=== PATIENT | female | born 1950 | race Caucasian/White ===

== ENCOUNTER → 2016-12-30 | Day surgery (SDC) | payer OTHER, MEDICARE ==
[2016-12-16 09:51] VITALS: Ht 168.9 cm; Wt 138.6 kg
[~2016-12-30] VITALS: Ht 168.9 cm; Wt 138.6 kg
[~2016-12-30] MED LIST: ACET-1256 PO; BUPIVACAINE 0.25% 2.5MG/ML PF 10 ML VIAL INFIL ONE; CHOL20007 PO; CMD4 PO; FERR1TAB23 PO; HYDR-5688 PO; HYDR25TA4 PO; IOPAMIDOL INJ 61% 15 ML VIAL ONE; LIDOCAINE HCL 1% MPF 5 ML VIAL ONE; LISI-725 PO; MAGN250T3 PO; NAPR-998 PO; OMEG10007 PO; POTASSIUM PO; PRLSR20 PO; RST/30 PO; SODIUM CHLORIDE 0.9% INJ 10 ML VIAL ONE
[2016-12-30 12:59] LABS: INR 1.1 (0.9-1.1); PROTHROMBIN TIME (PATIENT) 11.4 SECONDS (9.0-12.0)
--- NOTE | 2016-12-30 13:54 | History & Physical Bridge - [place] ---
H&P Re-Evaluation Bridge Note: I have examined the patient, reviewed the History & Physical and in the interval since the performance of the History & Physical I have noted the following changes of clinical significance: No changes noted
[2016-12-30 14:20] VITALS: TEMP 36.6
--- NOTE | 2016-12-30 14:28 | Discharge Instructions ---
Discharge Instructions Date of Service Dec 30, 2016. Visit Reason for Visit: Lumbar Radiculopathy Discharge Discharge Diagnosis / Problem: right leg pain Discharge Goals Goal(s): Decrease discomfort, Improve function Activity Recommendations Activity Limitations: resume your previous activity Anesthesia . Post Anesthesia Instructions: If you have had General Anesthesia or IV Sedation: * Do not drive today. * Resume driving when surgeon permits. * Do not make important decisions or sign legal documents today. * Call surgeon for: 1. Temperature elevations greater than 101 degrees F. 2. Uncontrollable pain. 3. Excessive bleeding. 4. Persistent nausea and vomiting. 5. Medication intolerance (nausea, vomiting or rash). * For nausea and vomiting use only clear liquids such as: tea, soda, bouillon until nausea subsides, then gradually increase diet as tolerated. * If you have any concerns or questions, call your surgeon's office. If physician is unavailable and it is an emergency, call 911 or go to the nearest emergency room. . Diet Recommendations Recommended Home Diet: resume previous diet Procedures Procedures Performed: RIGHT L2-3 TRANSFORAMINAL EPIDURAL STEROID INJECTION Pending Studies Studies pending at discharge: no Medical Emergencies . Who to Call and When: Medical Emergencies: If at any time you feel your situation is an emergency, please call 911 immediately. . Non-Emergent Contact Non-Emergency issues call your: Specialist . . "Provider Documentation" section prepared by Alvaro Barker.
[2016-12-30 14:33] VITALS: BP 119/75; PULSE 76; O2SAT 99
--- NOTE | 2016-12-30 14:54 | OPERATIVE REPORT ---
DATE OF OPERATION: 12/30/2016 PREOPERATIVE DIAGNOSES: Right L3 radiculopathy, history of multilevel decompression and L2-L3 disc herniation. POSTOPERATIVE DIAGNOSES: Same. PROCEDURE: Right L3 transforaminal epidural steroid injection. INDICATIONS: The patient is a 66-year-old white female who has received transforaminal epidurals in the past historically for the left side. Recently the right side has been bothering her. The transforaminal approach needs to be done as she has had prior surgery multiple levels and unable to enter into an intralaminar approach. PHYSICAL EXAMINATION: Pleasant female seated comfortably. She is without any focal weakness. Intact sensation. Negative seated straight leg raises. CONSENT: Verbal and written consent was obtained from the patient. Risks and benefits were reviewed. Risks include but are not limited to epidural abscess, epidural hematoma, allergic reaction, dural puncture. The patient wishes to proceed. PROCEDURE IN DETAIL: The patient was taken back to the special procedures room of the [facility]. She was maintained in a prone position. Backside was cleansed with Betadine x3 and a dry sterile dressing was applied. Fluoroscope was used to identify the L2-L3 disc space. It was then moved to an oblique view to identify the pedicle at L3. Overlying skin was anesthetized with 5 mL of lidocaine 1% with a 25 gauge 1.5-inch needle and a 22 gauge 5-inch needle was then used to position just inferior to the pedicle and then it was advanced in an AP view to just under the foraminal opening. She then developed some paresthesias going down the leg, it was retracted a few millimeters. She then underwent injection with Isovue-300 contrast 1 mL, which demonstrated uptake around the nerve and then she was injected with 1 mL of bupivacaine 0.25%, 40 mg of Depo-Medrol. Injection was well tolerated and reproduced a familiar transient radicular sensation into the thigh area. DISPOSITION: 1. The patient is taken out into the discharge recovery area where she will be discharged home once discharge criteria have been met. 2. Follow up in the [facility] office in 2-4 weeks. I attest to the content of the Intraoperative Record and any orders documented therein. Any exceptio ns are noted below.
== END | disposition home or self-care (01) ==
LOC: X.SURG 12:19
PROVIDERS: ATTEND Physical Medicine & Rehabilitation
DX: M54.16 Radiculopathy, lumbar region (principal); M51.26 Other intervertebral disc displacement, lumbar region

== ENCOUNTER → 2017-04-22 | Day surgery (SDC) | payer OTHER, MEDICARE ==
[2017-03-31 13:02] VITALS: Ht 168.9 cm; Wt 138.6 kg
[~2017-04-22] VITALS: Ht 168.9 cm; Wt 138.6 kg
[~2017-04-22] MED LIST changes: -BUPIVACAINE 0.25% 2.5MG/ML PF 10 ML VIAL INFIL ONE; -IOPAMIDOL INJ 61% 15 ML VIAL ONE; -LIDOCAINE HCL 1% MPF 5 ML VIAL ONE; -SODIUM CHLORIDE 0.9% INJ 10 ML VIAL ONE
[2017-04-22] MEDS: SODIUM CHLORIDE 0.9% INJ 10 ML VIAL ONE ×2 (06:41→12:04)
[2017-04-22 11:20] LABS: INR 1.1 (0.9-1.1); PROTHROMBIN TIME (PATIENT) 11.8 SECONDS (9.0-12.0)
[2017-04-22] MEDS: BUPIVACAINE 0.25% 2.5MG/ML PF 10 ML VIAL ONE (12:04)
[2017-04-22] MEDS: IOPAMIDOL INJ 61% 15 ML VIAL ONE (12:04)
[2017-04-22] MEDS: LIDOCAINE HCL 1% MPF 5 ML VIAL ONE (12:04)
--- NOTE | 2017-04-22 12:15 | Discharge Instructions ---
Discharge Instructions Date of Service Apr 22, 2017. Visit Reason for Visit: Lumbar Spondylolisthesis Discharge Discharge Diagnosis / Problem: right leg pain Discharge Goals Goal(s): Decrease discomfort, Improve function Medications Stopped Medications Name(s): Pt. stated her last dose Coumadin 04/17/17 - last dose Fish Oil 04/16/17 - last dose Aleve 8-10 days ago. Activity Recommendations Activity Limitations: resume your previous activity Anesthesia . Post Anesthesia Instructions: If you have had General Anesthesia or IV Sedation: * Do not drive today. * Resume driving when surgeon permits. * Do not make important decisions or sign legal documents today. * Call surgeon for: 1. Temperature elevations greater than 101 degrees F. 2. Uncontrollable pain. 3. Excessive bleeding. 4. Persistent nausea and vomiting. 5. Medication intolerance (nausea, vomiting or rash). * For nausea and vomiting use only clear liquids such as: tea, soda, bouillon until nausea subsides, then gradually increase diet as tolerated. * If you have any concerns or questions, call your surgeon's office. If physician is unavailable and it is an emergency, call 911 or go to the nearest emergency room. . Diet Recommendations Recommended Home Diet: resume previous diet Procedures Procedures Performed: Lumbar Epidural Steroid Injection Pending Studies Studies pending at discharge: no Medical Emergencies . Who to Call and When: Medical Emergencies: If at any time you feel your situation is an emergency, please call 911 immediately. . Non-Emergent Contact Non-Emergency issues call your: Specialist . . "Provider Documentation" section prepared by Alvaro Barker. .
[2017-04-22 12:16] VITALS: BP 114/76; PULSE 63; TEMP 36.4; O2SAT 97
--- NOTE | 2017-04-22 12:19 | [facility] Operative Report ---
Operative Report Date of Service Apr 22, 2017. Operative Report DATE OF SURGERY: 04/22/17. DATE OF OPERATION: 04/22/2017 PREOPERATIVE DIAGNOSES: Right L4 radiculopathy, history of multilevel decompression and L4-5 stenosis. POSTOPERATIVE DIAGNOSES: Same. PROCEDURE: Right L4 transforaminal epidural steroid injection. INDICATIONS: The patient is a 66-year-old white female who has received transforaminal epidurals in the past historically for the left side. Recently the right side has been bothering her. The transforaminal approach needs to be done as she has had prior surgery multiple levels and unable to enter into an intralaminar approach. PHYSICAL EXAMINATION: Pleasant female seated comfortably. She is without any focal weakness. Intact sensation. Negative seated straight leg raises. CONSENT: Verbal and written consent was obtained from the patient. Risks and benefits were reviewed. Risks include but are not limited to epidural abscess, epidural hematoma, allergic reaction, dural puncture. The patient wishes to proceed. PROCEDURE IN DETAIL: The patient was taken back to the special procedures room of the [facility]. She was maintained in a prone position. Backside was cleansed with Betadine x3 and a dry sterile dressing was applied. Fluoroscope was used to identify the L4-L5 disc space. It was then moved to an oblique view to identify the pedicle at L4. Overlying skin was anesthetized with 5 mL of lidocaine 1% with a 25 gauge 1.5-inch needle and a 22 gauge 5-inch needle was then used to position just inferior to the pedicle and then it was advanced in an AP view to just under the foraminal opening. She then developed some paresthesias going down the leg, it was retracted a few millimeters. She then underwent injection with Isovue-300 contrast 1 mL, which demonstrated uptake around the nerve and then she was injected with 1 mL of bupivacaine 0.25%, 40 mg of Depo-Medrol. Injection was well tolerated and reproduced a familiar transient radicular sensation into the thigh area. DISPOSITION: 1. The patient is taken out into the discharge recovery area where she will be discharged home once discharge criteria have been met. 2. Follow up in the [facility] office in 2-4 weeks. I attest to the content of the Intraoperative Record and any orders documented therein. Any exceptions are noted below. I attest to the content of the Intraoperative Record and any orders documented therein. Any exceptions are noted below.
== END | disposition home or self-care (01) ==
LOC: X.SURG 10:27
PROVIDERS: ATTEND Physical Medicine & Rehabilitation
DX: M54.16 Radiculopathy, lumbar region (principal); M48.06 Spinal stenosis, lumbar region

== ENCOUNTER → 2017-09-28 | Day surgery (SDC) | payer OTHER, MEDICARE ==
[2017-08-31 14:50] VITALS: Ht 168.9 cm; Wt 138.6 kg
[~2017-09-28] VITALS: Ht 168.9 cm; Wt 138.6 kg
[~2017-09-28] MED LIST changes: +BUPIVACAINE 0.25% 2.5MG/ML PF 10 ML VIAL ONE; +DIPH-437 PO; +IOPAMIDOL INJ 61% 15 ML VIAL ONE; +KETO10TA PO; +LIDOCAINE HCL 1% MPF 5 ML VIAL ONE; -NAPR-998 PO; +NAPR1TAB9 PO; +SODIUM CHLORIDE 0.9% INJ 10 ML VIAL ONE
[2017-09-28 13:29] LABS: INR 1.2 (0.9-1.1); PARTIAL THROMBOPLASTIN RATIO 1.1; PROTHROMBIN TIME (PATIENT) 12.5 SECONDS (9.0-12.0)
[2017-09-28 14:20] VITALS: TEMP 37.4
--- NOTE | 2017-09-28 14:26 | Discharge Instructions ---
Discharge Instructions Date of Service Sep 28, 2017. Visit Reason for Visit: Lumbar Spondylolisthesis Discharge Discharge Diagnosis / Problem: right leg pain Discharge Goals Goal(s): Decrease discomfort, Improve function Activity Recommendations Activity Limitations: resume your previous activity Anesthesia . Post Anesthesia Instructions: If you have had General Anesthesia or IV Sedation: * Do not drive today. * Resume driving when surgeon permits. * Do not make important decisions or sign legal documents today. * Call surgeon for: 1. Temperature elevations greater than 101 degrees F. 2. Uncontrollable pain. 3. Excessive bleeding. 4. Persistent nausea and vomiting. 5. Medication intolerance (nausea, vomiting or rash). * For nausea and vomiting use only clear liquids such as: tea, soda, bouillon until nausea subsides, then gradually increase diet as tolerated. * If you have any concerns or questions, call your surgeon's office. If physician is unavailable and it is an emergency, call 911 or go to the nearest emergency room. . Diet Recommendations Recommended Home Diet: resume previous diet Procedures Procedures Performed: Lumbar Epidural Steroid Injection with Transforaminal Approach Pending Studies Studies pending at discharge: no Medical Emergencies . Who to Call and When: Medical Emergencies: If at any time you feel your situation is an emergency, please call 911 immediately. . Non-Emergent Contact Non-Emergency issues call your: Specialist . . "Provider Documentation" section prepared by Alvaro Barker. .
[2017-09-28 14:30] VITALS: BP 130/75; PULSE 79; O2SAT 95
--- NOTE | 2017-09-28 15:21 | OPERATIVE REPORT ---
DATE OF OPERATION: 09/28/2017 PREOPERATIVE DIAGNOSIS: Lumbar spinal stenosis L3-L4, L4-L5 with right L4 radiculopathy, history of multilevel lumbar laminectomy and decompression. POSTOPERATIVE DIAGNOSIS: Same. PROCEDURE: Right epidural steroid injection via a transforaminal route at L4-L5 on the right. SURGEON: Dr. Alvaro Barker. INDICATIONS: The patient is a 66-year-old white female who presents today for an epidural injection. She has received them in the past with good relief of right radicular pain and her pain has been increasing and becoming more problematic and functionally limiting to her. PHYSICAL EXAMINATION: GENERAL: Pleasant female seated comfortably. She is in no apparent distress. MUSCULOSKELETAL EXAMINATION: Lumbar paraspinal muscles were palpated and noted be nontender. She is without any focal weakness. Negative seated straight leg raises. CONSENT: Verbal and written consent was obtained from the patient. Risks and benefits were reviewed. Risks include but are not limited to abscess, epidural abscess, epidural hematoma, allergic reaction and dural puncture and headache. She wishes to proceed. PROCEDURE: The patient was taken back to the special procedures room of the [facility] where she was maintained in a prone position. Backside was cleansed with Betadine x3 and a dry sterile dressing was applied. Fluoroscope was used to identify the L4-L5 interlaminar space and then moved to an oblique view to identify the L4 pedicle. Overlying skin just inferior to the pedicle was anesthetized with 5 mL of lidocaine 1% with a 25 gauge 1.5-inch needle. A 22 gauge 5 cm needle was then directed targeting inferior to the pedicle and was able to then enter below the nerve area when she began having discomfort. It was retracted a few millimeters and then injected with 0.25 mL Isovue which showed outline of the nerve root. She then underwent injection after negative aspiration of 40 mg of Depo-Medrol and 1 mL of bupivacaine 0.25%. Injection reproduced a transient familiar radicular sensation down the right leg. DISPOSITION: 1. The patient is taken out into the discharge recovery area where she will be discharged home once discharge criteria have been met. 2. Follow up in the [facility] office in 2-4 weeks. I attest to the content of the Intraoperative Record and any orders documented therein. Any exception s are noted below.
== END | disposition home or self-care (01) ==
LOC: X.SURG 12:33
PROVIDERS: ATTEND Physical Medicine & Rehabilitation
DX: M48.061 Spinal stenosis, lumbar region without neurogenic claudication (principal)

== ENCOUNTER → 2018-02-02 | Day surgery (SDC) | payer OTHER, MEDICARE ==
[2018-01-26 13:17] VITALS: Ht 168.9 cm; Wt 143.2 kg
[~2018-02-02] VITALS: Ht 168.9 cm; Wt 143.2 kg
[2018-02-02 14:09] LABS: INR 1.1 (0.9-1.1)
--- NOTE | 2018-02-02 14:49 | [facility] Post Operative Brief Note ---
Immediate Operative Summary Operative Date Feb 02, 2018. Pre-Operative Diagnosis Lumbar spondylolistesis with left L4 radiculopathy; history of prior lumbar surgery Post-Operative Diagnosis Same Procedure(s) Performed Left L4 Transforaminal Epidural Steroid Injection Surgeon Dr Alvaro Barker Bulb Grader Surgeon(s) None Estimated Blood Loss 0 Findings Consistent with Post-Op Diagnosis Specimens NA Drains None Anesthesia Type Local Complication(s) none Disposition Disposition:
[2018-02-02 14:50] VITALS: TEMP 36.6
--- NOTE | 2018-02-02 14:50 | Discharge Instructions ---
Discharge Instructions Date of Service Feb 02, 2018. Visit Reason for Visit: Radiculopathy & Spondylolisthesis Lumbar Region Discharge Discharge Diagnosis / Problem: left leg pain Discharge Goals Goal(s): Decrease discomfort, Improve function Medications Stopped Medications Name(s): fish oil last dose 01-27-18 warfarin last dose 01-28-18 aleve last dose 01-28-18 Activity Recommendations Activity Limitations: resume your previous activity Anesthesia . Post Anesthesia Instructions: If you have had General Anesthesia or IV Sedation: * Do not drive today. * Resume driving when surgeon permits. * Do not make important decisions or sign legal documents today. * Call surgeon for: 1. Temperature elevations greater than 101 degrees F. 2. Uncontrollable pain. 3. Excessive bleeding. 4. Persistent nausea and vomiting. 5. Medication intolerance (nausea, vomiting or rash). * For nausea and vomiting use only clear liquids such as: tea, soda, bouillon until nausea subsides, then gradually increase diet as tolerated. * If you have any concerns or questions, call your surgeon's office. If physician is unavailable and it is an emergency, call 911 or go to the nearest emergency room. . Diet Recommendations Recommended Home Diet: resume previous diet Procedures Procedures Performed: Left L4 Transforaminal Epidural Steroid Injection Pending Studies Studies pending at discharge: no Medical Emergencies . Who to Call and When: Medical Emergencies: If at any time you feel your situation is an emergency, please call 911 immediately. . Non-Emergent Contact Non-Emergency issues call your: Specialist . . "Provider Documentation" section prepared by Alvaro Barker. .
[2018-02-02 15:13] VITALS: BP 128/81; PULSE 84; O2SAT 97
--- NOTE | 2018-02-02 15:46 | OPERATIVE REPORT ---
DATE OF OPERATION: 02/02/2018 PREOPERATIVE DIAGNOSIS: Lumbar spondylolisthesis with left L4 radiculopathy, prior lumbar surgery. POSTOPERATIVE DIAGNOSIS: Same. PROCEDURE: Left transforaminal L4-L5 epidural steroid injection under fluoroscopic guidance. INDICATIONS: The patient is a 67-year-old white female who reports that she is ready for another injection. She has received these in the past, last one more than 4 months ago with fairly good relief after she receives them. Pain has been returning and problematic to her. PHYSICAL EXAMINATION: Pleasant female seated comfortably in no apparent distress, no focal weakness. Negative seated straight leg raises. Decreased subjective sensation in the left L4 dermatomal distribution. CONSENT: Verbal and written consent was obtained from the patient. Risks and benefits were reviewed. Risks include but are not limited to epidural abscess and allergic reaction. The patient wishes to proceed. PROCEDURE: The patient was taken back to the special procedures room of the [facility] where she was maintained in a prone position. Backside was cleansed with Betadine x3 and a dry sterile dressing was applied. Fluoroscope was used to identify the inferior pedicle of L4 in an oblique view. The overlying skin was anesthetized with 5 mL of lidocaine 1% with a 25 gauge 1/2 1.5-inch needle. A 22-gauge 7-inch needle was then directed targeting the inferior pedicle area. This was then advanced under AP view and she had some discomfort in the back and the thigh. It was retracted a few millimeters and injected and showed spread both a little superior to the site but also an outline of the nerve root. She then underwent injection after negative aspiration of 40 mg Depo-Medrol and 1 mL of bupivacaine 0.25% which she reports produced transient radicular sensation into the buttocks and the proximal thigh. DISPOSITION: 1. The patient is taken out into the discharge recovery area where she will be discharged home once discharge criteria have been met. 2. Follow up in the [facility] office in 4 weeks' time. I attest to the content of the Intraoperative Record and any orders documented therein. Any exception s are noted below.
== END | disposition home or self-care (01) ==
LOC: X.SURG 12:47
PROVIDERS: ATTEND Physical Medicine & Rehabilitation
DX: M43.16 Spondylolisthesis, lumbar region (principal); M54.16 Radiculopathy, lumbar region